=== PATIENT | female | born 1965 | race Caucasian/White ===

== ENCOUNTER 2020-01-03 14:24 | Emergency (ER) | payer OTHER ==
--- NOTE | 2020-01-03 14:39 | PDOC ---
Rapid Medical Evaluation Time Seen by Provider: 01/03/20 14:28 Medical Evaluation: 01/03/20 14:35 I performed a brief in-person evaluation of this patient. Pt is a 54 y/o female with complaint of bleeding in her urine at 3 am. She states that she had a partial hystererctomy 20 years ago. The patient states that also has right hip pain after moving awkwardly in the shower two days ago. She stats that she had surgery in [place] in October. She had an IT band lengthening, tendon repair and bursectomy. Pertinent physical exam findings: speaking in full sentences, walking without ataxia I have ordered the following: right hip xray, ua, urine culture Patient to proceed to ED for further evaluation. Discharge Disposition - Diagnosis Blood in urine - Referrals - Patient Instructions - Post Discharge Activity
[2020-01-03 14:56] VITALS: BP 98/46; PULSE 76; TEMP 98.5; BMI 28.5
--- NOTE | 2020-01-03 15:32 | PDOC ---
History of Present Illness - General Chief Complaint: Vaginal Bleeding Stated Complaint: VAGINAL BLEEDING Time Seen by Provider: 01/03/20 14:28 History Source: Patient Exam Limitations: Clinical Condition - History of Present Illness Travel History: No Initial Comments: 01/03/20 15:27 Patient with past medical history of fibromyalgia presented with complaint of sudden onset of vaginal bleeding while in bed this morning. Patient reported use the bathroom and saw bright red blood on tissue after she wiped and while in bed suddenly having gush of blood coming down. Patient is not sure if the blood was coming from the urethra or vagina. Patient reported using diaper with keeping getting soaked with blood. Patient reported bleeding stopped suddenly and has not had any more bleeding in the past last few hours. Patient with history of hip surgery status post rotator injury to the hip while using the bathroom 2 months ago in [place]. Patient reported whole body pain. Patient reported hysterectomy 20 years ago but still have her ovaries and has not had any menstrual period for 20 years. Denies nausea, vomiting, dizziness, chest pain, palpitations. Denies any other symptoms Timing/Duration: reports: resolved prior to arrival Past History - Medical History Allergies/Adverse Reactions: Allergies Allergy/AdvReac Type Severity Reaction Status Date / Time No Known Allergies Allergy Verified 01/03/20 14:46 COPD: No - Psycho-Social/Smoking History Smoking History: Never smoked Number of Cigarettes Smoked Daily: 3 Information on smoking cessation initiated: No Review of Systems - Review of Systems Able to Perform ROS?: Yes Is the patient limited Syriac proficient: No Constitutional: No: Fever, Malaise HEENTM: No: Symptoms Reported, See HPI, Eye Pain, Blurred Vision, Tearing, Recent change in vision, Double Vision, Cataracts, Ear Pain, Ocular Prothesis, Ear Discharge, Nose Pain, Nose Congestion, Tinnitus, Nose Bleeding, Hearing Loss, Throat Pain, Throat Swelling, Mouth Pain, Dental Problems, Difficulty Swallowing, Mouth Swelling, Other Respiratory: No: Symptoms reported, See HPI, Cough, Orthopnea, Shortness of Breath, SOB with Exertion, SOB at Rest, Stridor, Wheezing, Productive cough, Hemoptysis, Other Cardiac (ROS): No: Symptoms Reported, See HPI, Chest Pain, Edema, Irregular Heart Rate, Lightheadedness, Palpitations, Syncope, Chest Tightness, Other ABD/GI: No: Symptoms Reported, See HPI, Nausea, Vomiting, Abdominal cramping : Yes: Symptoms Reported, See HPI, Hematuria, Other (vaginal bleeding). No: Burning, Dysuria, Discharge, Frequency, Urgency Musculoskeletal: Yes: Symptoms Reported, See HPI, Muscle Pain (whole body pain) Integumentary: No: Symptoms Reported All Other Systems: Reviewed and Negative *Physical Exam - Vital Signs Last Vital Signs Temp Pulse Resp BP Pulse Ox 98.5 F 76 16 98/46 L 100 01/03/20 14:43 01/03/20 14:43 01/03/20 14:43 01/03/20 14:43 01/03/20 14:43 - Physical Exam General Appearance: Yes: Nourished, Appropriately Dressed. No: Apparent Distress HEENT: positive: Normal ENT Inspection Neck: positive: Supple Respiratory/Chest: positive: Lungs Clear, Normal Breath Sounds. negative: Chest Tender, Respiratory Distress, Accessory Muscle Use Cardiovascular: positive: Regular Rhythm, Regular Rate Female Pelvic Exam: positive: normal external exam, normal adnexa, other (no Cervix post hysterectomy). negative: vaginal bleeding (No blood in vaginal vault or evidence of vaginal bleeding) Gastrointestinal/Abdominal: positive: Normal Bowel Sounds. negative: Tender, F lat, Soft Rectal Exam: positive: normal exam, normal rectal tone, hemorrhoids (Small internal hemorrhoid on rectal exam). negative: other (No rectal bleeding) Musculoskeletal: positive: Normal Inspection Extremity: positive: Normal Inspection Integumentary: positive: Normal Color Neurologic: positive: Fully Oriented, Alert, Normal Mood/Affect, Normal Response ED Treatment Course - LABORATORY CBC & Chemistry Diagram: 01/03/20 16:00 - RADIOLOGY Radiology Studies Ordered: Category Date Time Status PELVIS(OTHER) US [US] Stat Ultrasound 01/03/20 15:24 Ordered Medical Decision Making - Medical Decision Making 01/03/20 15:29 Patient with past medical history of fibromyalgia presented with complaint of sudden onset of vaginal bleeding while in bed this morning. Patient reported use the bathroom and saw bright red blood on tissue after she wiped and while in bed suddenly having gush of blood coming down. Patient is not sure if the blood was coming from the urethra or vagina. Patient reported using diaper with keeping getting soaked with blood. Patient reported bleeding stopped suddenly and has not had any more bleeding in the past last few hours. Patient with history of hip surgery status post rotator injury to the hip while using the bathroom 2 months ago in [place]. Patient reported whole body pain. Patient reported hysterectomy 20 years ago but still have her ovaries and has not had any menstrual period for 20 years. Denies nausea, vomiting, dizziness, chest pain, palpitations. Denies any other symptoms Exam significant for small amount of white discharge in vaginal vault. No evidence of bleeding in vaginal or from urethra. No blood involved. Patient with no cervix on exam. Rectal exam shows internal hemorrhoid but no blood on rectum. No evidence of bleeding consistent with patient story. Given patient complaint of bleeding post hysterectomy, will do pelvic ultrasound to rule out any acute abnormality. CBC and chemistry lab ordered. UA and urine culture ordered. Toradol 30 mg IM ordered for myalgia. Treat based on lab and imaging results 01/03/20 18:38 CBC lab unremarkable. Pelvic ultrasound shows no acute abnormality. UA with no acute abnormality. Patient kept complaining of bleeding in the bathroom was witnessed by technical services analyst which ultrasound denies seeing any blood in the bathroom even though patient reported technical services analyst witnessed blood throughout the floor the bathroom. Patient stable for discharge to follow-up with your [facility] as no evidence of bleeding seen on exam despite patient persistently she has been having vaginal bleeding. Discharge - Discharge Information Problems reviewed: Yes Clinical Impression/Diagnosis: Vaginal bleeding Blood in urine Qualifiers: Hematuria type: unspecified type Qualified Code(s): R31.9 - Hematuria, unspecified Condition: Improved Disposition: HOME - Admission No - Follow up/Referral Referrals: Rodolfo Neal MD [Staff Physician] - - Patient Discharge Instructions Additional Instructions: Your blood work is normal. Your ultrasound is normal as well. Follow-up referred [employer] as soon as possible for vaginal bleeding - Post Discharge Activity
[2020-01-03 17:18] LABS: BASO % 0.6 % (0-2.0); EOS % 4.2 % (0-4.5); HEMATOCRIT 35.5 % (32.4-45.2); HEMOGLOBIN 12.1 GM/dL (10.7-15.3); LYMPH % 26.7 % (8-40); MCH 31.9 pg (25.7-33.7); MEAN PLT VOLUME 9.5 fl (7.5-11.1); MONO % 8.3 % (3.8-10.2); NEUT % 60.2 % (42.8-82.8); PLATELET COUNT 225 K/MM3 (134-434); RBC 3.78 M/mm3 (3.60-5.2); RDW 13.7 % (11.6-15.6); WHITE BLOOD COUNT 7.7 K/mm3 (4.0-10.0)
[2020-01-03 17:25] LABS: URINE APPEARANCE CLEAR; URINE BILIRUBIN NEGATIVE (NEGATIVE); URINE COLOR YELLOW; URINE GLUCOSE (UA) NEGATIVE (NEGATIVE); URINE KETONE NEGATIVE (NEGATIVE); URINE LEUK ESTERASE NEGATIVE (NEGATIVE); URINE NITRITE NEGATIVE (NEGATIVE); URINE PROTEIN NEGATIVE (NEGATIVE); URINE UROBILINOGEN 0.2 mg/dL (0.2-1.0)
[2020-01-03] MEDS ORDERED: KETOROLAC TROMETHAMINE 30 MG/1 ML VIAL IM ONE (18:29)
[2020-01-03] MEDS ORDERED: KETOROLAC TROMETHAMINE 30 MG/1 ML VIAL ONE (18:43)
== END 2020-01-03 18:53 | disposition home or self-care (01) ==
LOC: JER 14:24
PROC: 3E023GC Introduction of Other Therapeutic Substance into Muscle, Percutaneous Approach (ICD-10-PCS; principal; 2020-01-03)
DX: N93.9 Abnormal uterine and vaginal bleeding, unspecified (principal); R31.9 Hematuria, unspecified
CPT/HCPCS: 36415; 76856-TC; 81003; 85025; 87086; 99284-25